=== PATIENT | female | born 1990 | race Caucasian/White ===

== ENCOUNTER 2018-02-01 21:00 | Emergency (ER) | payer OTHER, MEDICAID ==
[~2018-02-01] VITALS: Ht 157.5 cm; Wt 86.2 kg
[~2018-02-01 21:00] MED LIST: AUGMENTIN 875875 MG PO; ZOLOFT25 MG PO
[2018-02-01 21:57] LABS: INFLUENZA A ANTIGEN None Detected (None Detect); INFLUENZA B ANTIGEN None Detected (None Detect)
[2018-02-01] MEDS ORDERED: PROAIR HFA8.5 GM INH (22:35)
[2018-02-01] MEDS ORDERED: AUGMENTIN 875-1 EACH PO (22:35)
[2018-02-01] MEDS ORDERED: HYDROCODONE-AP1 EAC6 PO (22:35)
[2018-02-01] MEDS ORDERED: SPACE CHAMBER1 EACH INH (22:35)
[2018-02-01] MEDS ORDERED: PREDNISONE50 MG PO (22:35)
[2018-02-01 22:51] VITALS: BP 105/47
== END 2018-02-01 22:53 | disposition home or self-care (01) ==
LOC: M.ERS 21:00
PROVIDERS: Emergency Medicine
DX: O99.513 Diseases of the respiratory system complicating pregnancy, third trimester (principal); J40 Bronchitis, not specified as acute or chronic; F17.200 Nicotine dependence, unspecified, uncomplicated

== ENCOUNTER 2018-08-04 20:51 | Emergency (ER) | payer OTHER, MEDICAID ==
[~2018-08-04] VITALS: Ht 157.5 cm; Wt 86.2 kg
[~2018-08-04 20:51] MED LIST changes: +AUGMENTIN 875-1 EACH PO; +HYDROCODONE-AP1 EAC6 PO; +PREDNISONE50 MG PO; +PROAIR HFA8.5 GM INH; +SPACE CHAMBER1 EACH INH
[2018-08-04 21:12] LABS: ABSOLUTE BASOPHILS 0.1 thou/uL (0.0-0.2); ABSOLUTE LYMPHOCYTES 4.6 thou/uL (0.8-5.3); ABSOLUTE MONOCYTES 0.8 thou/uL (0.0-1.2); ABSOLUTE NEUTROPHILS 5.2 thou/uL (1.6-8.1); BASOPHILS 0.7 %; EOSINOPHILS 8.4 %; HEMATOCRIT 43.4 % (37.0-47.0); HEMOGLOBIN 14.6 gm/dL (12.0-15.0); LYMPHOCYTES 39.2 %; MCH 30.4 pg (26.0-34.0); MCHC 33.5 g/dL (28.0-37.0); MCV 90.8 fL (80.0-100.0); MONOCYTES 7.3 %; MPV 6.6 fl. (7.2-11.1); NUCLEATED RBCS 0 /100WBC; PLATELET COUNT* 384 thou/uL (150-400); POLYS 44.4 %; RBC 4.78 mil/uL (4.20-5.00); RDW-CV 13.1 % (10.5-14.5); WBC 11.7 thou/uL (4.0-11.0)
[2018-08-04 21:13] LABS: URINE BILIRUBIN NEGATIVE (Negative); URINE BLOOD NEGATIVE (Negative); URINE CLARITY CLEAR; URINE COLOR YELLOW; URINE GLUCOSE-RANDOM NEGATIVE (Negative); URINE KETONES NEGATIVE (Negative); URINE LEUKOCYTES-REFLEX NEGATIVE (Negative); URINE NITRITE-REFLEX NEGATIVE (Negative); URINE PROTEIN NEGATIVE (Negative); URINE SPECIFIC GRAVITY >= 1.030 (1.005-1.030); URINE UROBILINOGEN 0.2 E.U./dl (0.2-1.0)
[2018-08-04 21:16] LABS: CALCIUM 9.5 mg/dL (8.5-10.1); CREATININE 0.7 mg/dL (0.6-1.3); POTASSIUM 3.6 mmol/L (3.5-5.1)
[2018-08-04 21:20] LABS: ALBUMIN 4.3 g/dL (3.4-5.0); TOTAL BILIRUBIN 0.4 mg/dL (<0.1-1.0); TOTAL PROTEIN 7.9 g/dL (6.4-8.2)
[2018-08-04 21:25] LABS: AMP/METHAMP Negative (Negative); BARBITURATES Negative (Negative); BENZODIAZEPINES Negative (Negative); COCAINE Negative (Negative); METHADONE Negative (Negative); OPIATES Negative (Negative); PCP Negative (Negative); THC Negative (Negative)
[2018-08-04] MEDS ORDERED: ANTIVERT25 MG PO (21:40)
[2018-08-04 21:48] VITALS: BP 144/78
== END 2018-08-04 21:49 | disposition home or self-care (01) ==
LOC: M.ERS 20:51
PROVIDERS: Physician Assistant
DX: R20.0 Anesthesia of skin (principal); R20.2 Paresthesia of skin; R42 Dizziness and giddiness; F17.210 Nicotine dependence, cigarettes, uncomplicated

== ENCOUNTER 2019-02-21 19:39 | Emergency (ER) | payer OTHER, MEDICAID ==
[~2019-02-21] VITALS: Ht 157.5 cm; Wt 90.7 kg
[~2019-02-21 19:39] MED LIST changes: +ANTIVERT25 MG PO
[2019-02-21 20:22] LABS: URINE BILIRUBIN NEGATIVE (Negative); URINE BLOOD 1+ (Negative); URINE CLARITY CLEAR; URINE COLOR YELLOW; URINE GLUCOSE-RANDOM NEGATIVE (Negative); URINE KETONES TRACE (Negative); URINE LEUKOCYTES-REFLEX NEGATIVE (Negative); URINE NITRITE-REFLEX NEGATIVE (Negative); URINE PROTEIN NEGATIVE (Negative); URINE SPECIFIC GRAVITY 1.025 (1.005-1.030); URINE UROBILINOGEN 0.2 E.U./dl (0.2-1.0)
[2019-02-21 20:23] LABS: ABSOLUTE BASOPHILS 0.1 thou/uL (0.0-0.2); ABSOLUTE EOSINOPHILS 0.8 thou/uL (0.0-0.7); ABSOLUTE LYMPHOCYTES 3.7 thou/uL (0.8-5.3); ABSOLUTE MONOCYTES 0.8 thou/uL (0.0-1.2); ABSOLUTE NEUTROPHILS 6.5 thou/uL (1.6-8.1); BASOPHILS 1.1 %; EOSINOPHILS 6.7 %; HEMATOCRIT 43.1 % (37.0-47.0); HEMOGLOBIN 14.6 gm/dL (12.0-15.0); LYMPHOCYTES 30.7 %; MCH 30.6 pg (26.0-34.0); MCHC 33.9 g/dL (28.0-37.0); MCV 90.4 fL (80.0-100.0); MONOCYTES 6.7 %; MPV 6.8 fl. (7.2-11.1); NUCLEATED RBCS 0 /100WBC; PLATELET COUNT* 334 thou/uL (150-400); POLYS 54.8 %; RBC 4.77 mil/uL (4.20-5.00); RDW-CV 12.7 % (10.5-14.5); WBC 11.9 thou/uL (4.0-11.0)
[2019-02-21 20:30] LABS: BACTERIA-REFLEX 1-9 Few /HPF (None Seen); CASTS None Seen /LPF (None Seen); CRYSTALS None Seen /LPF (None Seen); SQUAMOUS 0-3 Few /LPF (0-3); URINE RBC 0-2 Rare /HPF (0-2); URINE WBC-REFLEX 0-5 Rare /HPF (0-5)
[2019-02-21 20:49] LABS: PROTIME 10.2 Seconds (9.20-11.50)
[2019-02-21 21:09] LABS: ALKALINE PHOSPHATASE 68 U/L (46-116); ANION GAP 10 mmol/L (7-16); BUN 17 mg/dL (7-18); CALCIUM 9.2 mg/dL (8.5-10.1); CHLORIDE 104 mmol/L (98-107); CO2 27 mmol/L (21-32); CREATININE 0.7 mg/dL (0.6-1.3); GLUCOSE 85 mg/dL (70-99); LIPASE 105 U/L (73-393); MAGNESIUM 2.1 mg/dL (1.8-2.4); NT-PRO BRAIN NAT PEPTIDE 6 pg/mL (<300); POTASSIUM 4.1 mmol/L (3.5-5.1); SGOT 13 U/L (15-37); SGPT 24 U/L (30-65); SODIUM 141 mmol/L (136-145); TOTAL BILIRUBIN 0.1 mg/dL (<0.1-1.0); TOTAL PROTEIN 7.4 g/dL (6.4-8.2); TROPONIN-I LEVEL <0.06 ng/mL (<0.06)
[2019-02-21 21:33] VITALS: BP 120/42
--- NOTE | 2019-02-22 13:27 | EKG ---
[place] [address] ELECTROCARDIOGRAM REPORT Name: ANG WAHL [id number] Admission: 02/21/19 Attend Phys: Discharge: 02/21/19 Date of : 89 Report #: [id number] THIS REPORT FOR: //name// [facility] ED Test Date: 2019-02-21 Test Time: 19:49:17 Pat Name: ANG WAHL Department: Room: Gender: F Hr Receptionist: RONY : 1990 Requested By: Patricia Hernandez Order Number: [id number] MD: Yossi Hinds Measurements Intervals [place] Rate: 80 P: 28 HI: 158 QRS: 50 QRSD: 92 T: 12 QT: 356 QTc: 411 Interpretive Statements Sinus rhythm No previous ECG available for comparison Electronically Signed On 02-22-2019 13:26:47 CDT by Yossi Hinds [email or web address] <ELECTRONICALLY SIGNED> By: Yossi Hinds MD, [facility] 02/22/19 1326 1949 48 Yossi Hinds MD, FACC /EPI
== END 2019-02-21 21:33 | disposition home or self-care (01) ==
LOC: M.ERS 19:39
PROVIDERS: Emergency Medicine
DX: R00.2 Palpitations (principal); F17.210 Nicotine dependence, cigarettes, uncomplicated

== ENCOUNTER 2020-11-29 23:52 | Emergency (ER) | payer OTHER, MEDICAID ==
[~2020-11-29] VITALS: Ht 157.5 cm; Wt 81.7 kg
[2020-11-30 00:08] LABS: URINE BILIRUBIN NEGATIVE (Negative); URINE BLOOD 1+ (Negative); URINE CLARITY CLEAR; URINE COLOR YELLOW; URINE GLUCOSE-RANDOM NEGATIVE (Negative); URINE KETONES NEGATIVE (Negative); URINE LEUKOCYTES-REFLEX TRACE (Negative); URINE NITRITE-REFLEX NEGATIVE (Negative); URINE PROTEIN NEGATIVE (Negative); URINE SPECIFIC GRAVITY 1.025 (1.005-1.030); URINE UROBILINOGEN 0.2 E.U./dl (0.2-1.0)
[2020-11-30 00:09] LABS: RBC 4.88 mil/uL (4.20-5.00); WBC 13.4 thou/uL (4.0-11.0)
[2020-11-30 00:10] LABS: HEMATOCRIT 45.6 % (37.0-47.0); HEMOGLOBIN 15.1 gm/dL (12.0-15.0); MCH 30.9 pg (26.0-34.0); MCHC 33.1 g/dL (28.0-37.0); MCV 93.3 fL (80.0-100.0); MPV 6.6 fl. (7.2-11.1); RDW-CV 13.5 % (10.5-14.5)
[2020-11-30 00:19] LABS: CALCIUM 9.2 mg/dL (8.5-10.1); CREATININE 0.7 mg/dL (0.6-1.3); POTASSIUM 4.1 mmol/L (3.5-5.1)
[2020-11-30 00:21] LABS: BACTERIA-REFLEX >30 Many /HPF (None Seen); CASTS None Seen /LPF (None Seen); MUCUS 4-6 Moderate strn/LPF (None Seen); SQUAMOUS 0-3 Few /LPF (0-3); URINE RBC 3-10 Few /HPF (0-2); URINE WBC-REFLEX 6-15 Few /HPF (0-5)
[2020-11-30 00:22] LABS: CRYSTALS None Seen /LPF (None Seen)
[2020-11-30 00:24] LABS: TOTAL BILIRUBIN 0.2 mg/dL (<0.1-1.0); TOTAL PROTEIN 7.5 g/dL (6.4-8.2)
[2020-11-30] MEDS ORDERED: FLOMAX0.4 MG PO (01:40)
[2020-11-30] MEDS ORDERED: TORADOL 10 MG T10 MG PO (01:40)
[2020-11-30] MEDS ORDERED: ZOFRAN ODT4 MG PO (01:40)
[2020-11-30 01:55] VITALS: BP 110/70
== END 2020-11-30 02:00 | disposition home or self-care (01) ==
LOC: M.ERS 23:52
PROVIDERS: Personal Emergency Response Attendant
DX: N20.0 Calculus of kidney (principal); N13.30 Unspecified hydronephrosis; F17.210 Nicotine dependence, cigarettes, uncomplicated